=== PATIENT | female | born 1995 | race Caucasian/White ===

== ENCOUNTER 2024-11-21 23:56 | Emergency (ER) | payer BC ==
[~2024-11-21] VITALS: Ht 154.9 cm; Wt 59.0 kg
[2024-11-22 00:35] LABS: BASOPHILS % (AUTO) 0.4 % (0-1); EOSINOPHILS # (AUTO) 0.3 X10'3 (0-0.9); EOSINOPHILS % (AUTO) 3.1 % (0-6); HEMATOCRIT 36.7 % (35.0-45.0); HEMOGLOBIN 12.7 g/dl (12.0-16.0); LYMPHOCYTES # (AUTO) 3.9 X10'3 (1.1-4.8); LYMPHOCYTES % (AUTO) 38.7 % (21-51); MEAN CORPUSCULAR HEMOGLOBIN 29.9 PG (27.0-31.0); MEAN CORPUSCULAR HGB CONC 34.4 g/dL (33.0-36.5); MEAN CORPUSCULAR VOLUME 86.8 FL (78-98); MEAN PLATELET VOLUME 7.2 FL (7.4-10.4); MONOCYTES # (AUTO) 0.8 X10'3 (0-0.9); MONOCYTES % (AUTO) 7.6 % (2-12); NEUTROPHILS % (AUTO) 50.2 % (42-75); PLATELET COUNT 387 X10'3 (140-440); RED BLOOD COUNT 4.23 X10'6 (4.20-5.60)
[2024-11-22 00:44] LABS: URINE HCG NEGATIVE (NEG)
[2024-11-22 00:45] LABS: ALANINE AMINOTRANSFERASE 21 U/L (12-78); ALBUMIN 4.2 G/DL (3.4-5.0); ALBUMIN/GLOBULIN RATIO 1.2 (1.1-1.5); ALKALINE PHOSPHATASE 79 IU/L (46-116); ANION GAP 8 (8-16); ASPARTATE AMINO TRANSFERASE 13 U/L (10-37); BILIRUBIN,TOTAL 0.3 MG/DL (0.1-1.0); BLOOD UREA NITROGEN 15 MG/DL (7-18); BUN/CREATININE RATIO 20.3 (10.0-20.0); CALCIUM 8.9 MG/DL (8.5-10.1); CHLORIDE 105 MMOL/L (99-107); CREATININE 0.74 MG/DL (0.40-0.90); GLUCOSE 126 MG/DL (70-104); LIPASE 45 U/L (16-77); POTASSIUM 4.2 MMOL/L (3.5-5.1); SODIUM 138 MMOL/L (135-145); TOTAL CARBON DIOXIDE 24.6 MMOL/L (24-32); TOTAL PROTEIN 7.6 G/DL (6.4-8.2); eCRCL 86 ML/MIN; eGFR > 90 ML/MIN
[2024-11-22 01:06] LABS: BILIRUBIN,URINE NEGATIVE (Neg); CLARITY,URINE CLEAR (Clear); COLOR,URINE YELLOW (Yellow); GLUCOSE, URINE NEGATIVE (Neg); KETONES,URINE NEGATIVE (Neg); LEUKOCYTE ESTERASE ,URINE NEGATIVE (Neg); NITRITES, URINE NEGATIVE (Neg); OCCULT BLOOD,URINE MODERATE (Neg); PH,URINE 5.5 (4.8-8.0); PROTEIN,URINE NEGATIVE (Neg); UROBILINOGEN,URINE 0.2 E.U/dL (0.2-1.0)
[2024-11-22 01:08] LABS: UA COLLECTION TYPE CLN CATCH MIDSTREAM
[2024-11-22 01:15] LABS: BACTERIA,URINE 3+ /HPF (Neg); SQUAMOUS EPITHELIAL CELL,UR MODERATE /LPF (FEW); WBC,URINE NONE SEEN /HPF (0-4)
[2024-11-22] MEDS: normal saline 1000ML IV soln IVB ONE (02:08)
[2024-11-22] MEDS: ondansetron/PF 4mg/2ml inj IV ONE (02:09)
[2024-11-22] MEDS: ketorolac trometh 30MG/ML vial 30 MG/ML VIAL IV ONE (02:09)
[2024-11-22] MEDS: morphine 4 MG/ML inj SYRINge IV ONE ×2 (02:41→04:09)
[2024-11-22] MEDS ORDERED: ONDA-243 PO (04:25)
[2024-11-22] MEDS ORDERED: FLO0.4C PO (04:25)
[2024-11-22] MEDS ORDERED: OXYC-134 PO (04:30)
[2024-11-22] MEDS: oxyCODONE/APAP 5-325mg tablet PO ONE (05:49)
[2024-11-22 05:58] VITALS: BP 108/64; PULSE 82; RESP 18; TEMP 98.7; O2SAT 98
== END 2024-11-22 05:50 | disposition home or self-care (01) ==
LOC: ER 23:57
DX: N23 Unspecified renal colic (principal); Z79.899 Other long term (current) drug therapy
CPT/HCPCS: 36415; 74176; 80053; 81001; 81025; 83690; 85025; 96361; 96374; 96375; 96376; 99285; J1885; J2270; J2405; J7030